=== PATIENT | male | born 1985 | race African-American/Black ===

== ENCOUNTER 2018-06-05 23:16 | Emergency (ER) | payer OTHER ==
[~2018-06-05] VITALS: Ht 175.3 cm; Wt 91.0 kg
[2018-06-06 00:29] VITALS: BP 140/83
== END 2018-06-06 01:59 | disposition left against medical advice (07) ==
LOC: ER 23:16
DX: R09.89 Other specified symptoms and signs involving the circulatory and respiratory systems (principal); F17.200 Nicotine dependence, unspecified, uncomplicated; F12.10 Cannabis abuse, uncomplicated
CPT/HCPCS: 99281